=== PATIENT | female | born 1985 | race Caucasian/White ===

== ENCOUNTER 2018-04-25 07:56 | Emergency (ER) | payer OTHER ==
[~2018-04-25] VITALS: Ht 157.5 cm; Wt 49.9 kg
[2018-04-25 08:13] VITALS: BP 127/84
[2018-04-26 08:51] LABS: Hepatitis B Surface Antibody Positive
[2018-04-26 09:12] LABS: Hepatitis B Surface Antigen Negative (Negative)
== END 2018-04-25 09:09 | disposition home or self-care (01) ==
LOC: ER 07:56
DX: H57.12 Ocular pain, left eye (principal); Z77.21 Contact with and (suspected) exposure to potentially hazardous body fluids
CPT/HCPCS: 36415; 86703; 86706; 86803; 87340

== ENCOUNTER → 2018-07-30 | Outpatient (CLI) | payer OTHER ==
[2018-07-30 13:44] LABS: Hepatitis B Surface Antibody Positive
[2018-07-30 16:55] LABS: Hepatitis B Surface Antigen Negative (Negative)
== END | disposition home or self-care (01) ==
LOC: LAB 12:39
PROVIDERS: ATTEND Nurse Practitioner
DX: Z77.21 Contact with and (suspected) exposure to potentially hazardous body fluids (principal)
CPT/HCPCS: 36415; 86703; 86706; 86803; 87340

== ENCOUNTER 2024-06-28 20:46 | Emergency (ER) | payer BC, OTHER ==
[~2024-06-28] VITALS: Ht 157.5 cm; Wt 52.3 kg
[2024-06-28 20:57] VITALS: BP 126/94; PULSE 82; RESP 15; TEMP 99; O2SAT 98
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
--- NOTE | 2024-06-28 21:33 | DVH ---
CLINICAL INDICATION: Nasal injury TECHNIQUE: 4 radiographic views of the nasal were obtained. Comparison: None FINDINGS/IMPRESSION: There is no evidence of acute fracture or dislocation. The visualized joint space is well maintained. The alignment is anatomical. There is no radiopaque foreign body. HS:Y
== END 2024-06-28 21:58 | disposition home or self-care (01) ==
LOC: ER 20:46
DX: S00.33XA Contusion of nose, initial encounter (principal); W21.03XA Struck by baseball, initial encounter; Y93.64 Activity, baseball; Y92.89 Other specified places as the place of occurrence of the external cause; Y99.8 Other external cause status
CPT/HCPCS: 70140